=== PATIENT | female | born 2000 | race Caucasian/White ===

== ENCOUNTER 2021-03-03 14:35 | Emergency (ER) | payer SELFPAY ==
[2021-03-03 22:34] LABS: SARS-CoV-2 PCR by NAA Not Detected (NotDetected)
== END 2021-03-03 15:26 | disposition home or self-care (01) ==
LOC: ERS 14:35
DX: R51.9 Headache, unspecified (principal); J02.9 Acute pharyngitis, unspecified; R43.8 Other disturbances of smell and taste; Z20.822 Contact with and (suspected) exposure to COVID-19; E03.9 Hypothyroidism, unspecified; Z79.899 Other long term (current) drug therapy
CPT/HCPCS: 99284; U0003; U0005